=== PATIENT | female | born 1980 | race Caucasian/White ===

== ENCOUNTER 2023-04-22 22:04 | Emergency (ER) | payer MEDICAID, OTHER ==
[~2023-04-22] VITALS: Ht 165.1 cm; Wt 59.0 kg
[~2023-04-22 22:04] MED LIST: DOCUSATE; NORCO 5/325 MG
[2023-04-22 22:08] VITALS: O2SAT 99
[2023-04-22] MEDS ORDERED: IBUPROFEN 600MG TABLET PO STA (23:28)
[2023-04-22] MEDS ORDERED: LEVETIRACETAM 1000MG PREMIX 100 ML IV ONE (23:30)
[2023-04-22] MEDS ORDERED: SODIUM CHLORIDE 0.9% 1,000 ML IV ONE (23:30)
[2023-04-22] MEDS ORDERED: LORAZEPAM 2MG/ML CPJ IV ONE (23:30)
[2023-04-23 02:24] VITALS: BP 117/72; PULSE 74; RESP 14; TEMP 98.1
== END 2023-04-23 02:35 | disposition home or self-care (01) ==
LOC: ER 22:04
DX: R56.9 Unspecified convulsions (principal)
CPT/HCPCS: 99285; 96365; 96375; J7030; J1953; J2060; Z7610